=== PATIENT | female | born 2000 | race Caucasian/White ===

== ENCOUNTER 2018-02-13 22:09 | Emergency (ER) | payer OTHER ==
[2018-02-13 23:02] LABS: Absolute Lymphocytes (CBC) 3.3 K/uL (0.7-4.9); Absolute Monocytes 0.8 K/uL (0.1-1.3); Absolute Neutrophil 6.1 K/uL (1.8-8.0); Basophils % 0.4 % (0-1.3); Eosinophils % 1.3 % (0-4.4); Hematocrit 40.7 % (36.0-45.0); Lymphocytes % 31.9 % (15.3-44.8); MCH 26.1 pg (27.0-35.0); MCV 78.3 fL (80-100); MPV 7.5 fL (7.6-11.3); Monocytes % 7.9 % (3.3-12.3); RBC Red Blood Cell Count 5.19 M/uL (3.86-4.86)
[2018-02-13] MEDS ORDERED: NA CHLORIDE 0.9% 1,000 ML ONE (23:18)
[2018-02-13 23:20] LABS: ALT/SGPT 25 U/L (12-78); AST/SGOT 33 U/L (15-37); Albumin 3.9 g/dL (3.4-5.0); Alkaline Phosphatase 102 U/L (45-117); BUN Blood Urea Nitrogen 10 mg/dL (7-18); Bicarbonate 26 mmol/L (21-32); Bilirubin Direct < 0.1 mg/dL (0-0.2); Bilirubin Total 0.1 mg/dL (0.2-1.0); Glucose Level 93 mg/dL (74-106); Lipase 171 U/L (73-393); Potassium 3.8 mmol/L (3.5-5.1); Sodium Level 140 mmol/L (136-145)
[2018-02-14 00:25] LABS: Urine Blood NEGATIVE (NEG); Urine Glucose NEGATIVE (NEG); Urine Protein NEGATIVE (NEG); Urine Specific Gravity 1.025 (1.005-1.030)
[2018-02-14 01:23] LABS: Urine Bacteria <20 /HPF (<20); Urine Culture Reflex Order NOT NEEDED; Urine RBC <5 /HPF (NONE SEEN)
--- NOTE | 2018-02-14 03:09 | ER ---
Nurse's Notes [facility] Name: Filemon Lim Age: 17 yrs Sex: Female : 2000 Arrival Date: 02/13/2018 Time: 22:10 Bed 16 Private MD: Diagnosis: Lower abdominal pain, unspecified Presentation: 02/13 22:27 Presenting complaint: Patient states: RIGHT flank/RLQ pain, worse with movement, sharp sr5 pain, started this evening, intermittent intensity but always present. Denies urinary s/s. 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 Transition of care: patient was not received from another setting of care. Onset of symptoms was February 13, 2018. 22:27 Method Of Arrival: Ambulatory sr5 22:27 Acuity: GAIL 3 sr5 02/14 00:21 Risk Assessment: Do you want to hurt yourself or someone else? Patient reports no tl2 desire to harm self or others. Initial Sepsis Screen: Does the patient meet any 2 criteria? No. Patient's initial sepsis screen is negative. Does the patient have a suspected source of infection? No. Patient's initial sepsis screen is negative. Care prior to arrival: None. Triage Assessment: 02/13 22:30 General: Appears uncomfortable, Behavior is calm, cooperative. Pain: Complains of pain sr5 in anterior aspect of right lateral abdomen and right lower quadrant Pain does not radiate. Pain currently is 9 out of 10 on a pain scale. Quality of pain is described as sharp. Neuro: No deficits noted. Cardiovascular: No deficits noted. Respiratory: No deficits noted. GI: Reports lower abdominal pain. 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 - Social history:: Smoking status: Patient/guardian denies using tobacco. - Ebola Screening: : No symptoms or risks identified at this time. Screenin/10 00:21 Abuse screen: Denies threats or abuse. Nutritional screening: No deficits noted. tl2 Tuberculosis screening: No symptoms or risk factors identified. Fall Risk None identified. Assessment: 02/13 22:30 General: Appears in no apparent distress. comfortable, Behavior is calm, cooperative, tl3 appropriate for age. Pain: Complains of pain in right lower quadrant and anterior aspect of right lateral abdomen. Neuro: Level of Consciousness is awake, alert, obeys commands, Oriented to person, place, time, situation. Cardiovascular: Denies chest pain. Respiratory: Airway is patent Respiratory effort is even, unlabored, Respiratory pattern is regular, symmetrical. GI: Bowel sounds present X 4 quads. Abd is soft and non tender Patient currently denies nausea, vomiting. : No signs and/or symptoms were reported regarding the genitourinary system. Derm: Skin is pink, warm \T\ dry. 02/14 00:00 Reassessment: Patient appears in no apparent distress at this time. Patient and/or tl3 family updated on plan of care and expected duration. Pain level reassessed. Patient is alert, oriented x 3, equal unlabored respirations, skin warm/dry/pink. 01:17 Reassessment: Patient appears in no apparent distress at this time. Patient and/or tl3 family updated on plan of care and expected duration. Pain level reassessed. Patient is alert, oriented x 3, equal unlabored respirations, skin warm/dry/pink. Awaiting dispo. 02:16 Reassessment: Patient appears in no apparent distress at this time. Patient and/or tl2 family updated on plan of care and expected duration. Pain level reassessed. Patient is alert, oriented x 3, equal unlabored respirations, skin warm/dry/pink. awaiting CT results. 03:35 Reassessment: Patient appears in no apparent distress at this time. Patient and/or tl2 family updated on plan of care and expected duration. Pain level reassessed. Patient is alert, oriented x 3, equal unlabored respirations, skin warm/dry/pink. Pt verbalized understanding of discharge instructions, need for follow up and prescription usage Patient states feeling better. Vital Signs: 02/13 22:30 BP 135 / 91; Pulse 94; Resp 16; Temp 98.9; Pulse Ox 100% on R/A; Weight 86.18 kg (R); sr5 Height 5 ft. 5 in. (165.10 cm); Pain 9/10; 02/14 00:20 BP 134 / 85; Pulse 94; Resp 18; Pulse Ox 100% on R/A; tl2 01:15 BP 120 / 69; Pulse 91; Resp 18; Pulse Ox 100% on R/A; tl3 02:16 BP 122 / 78; Pulse 94; Resp 18; Pulse Ox 100% on R/A; tl2 02/13 22:30 Body Mass Index 31.62 (86.18 kg, 165.10 cm) sr5 ED Course: 02/13 22:10 Patient arrived in ED. am2 22:24 Jyoti Patel FNP-C is PHCP. snw 22:24 Pierre Gold MD is Attending Physician. snw 22:28 Triage completed. sr5 22:29 Guillermina Santos, SOLIS is Primary Nurse. tl2 22:30 Arm band placed on. sr5 23:00 Inserted saline lock: 22 gauge in left antecubital area, using aseptic technique. Blood tl2 collected. 02/14 00:21 Patient has correct armband on for positive identification. Bed in low position. Call tl2 light in reach. Side rails up X 1. Adult w/ patient. 00:21 No provider procedures requiring assistance completed. tl2 01:[address] via wheelchair. kw1 01:[address] via wheelchair. kw1 01:[address] In Process Unspecified. EDMS 01:42 CT completed. Patient tolerated procedure well. Patient moved back from CT. kw1 03:35 IV discontinued, intact, bleeding controlled, No redness/swelling at site. Pressure tl2 dressing applied. Administered Medications: 02/13 23:14 Drug: NS 0.9% 1000 ml Route: IV; Rate: 1 bolus; Site: left antecubital; tl2 02/14 01:00 Follow up: IV Status: Completed infusion tl2 Outcome: 03:09 Discharge ordered by . snw 03:35 Discharged to home ambulatory, with family. tl2 03:35 Condition: stable 03:35 Discharge instructions given to patient, Instructed on discharge instructions, follow up and referral plans. medication usage, Demonstrated understanding of instructions, follow-up care, medications, Prescriptions given X 1. 03:36 Patient left the ED. tl2 Signatures: Dispatcher [employer] EDMS Jyoti Patel FNP-C FNP-Csnw Abdon Victoria, RN RN sr5 Guillermina Santos, RN RN tl2 Citlali Mars am2 Farnaz Raymundo kw1 hCarlotte Bunn, RN RN tl3
--- NOTE | 2018-02-14 03:09 | EDPHYS ---
Physician Documentation [facility] Name: Filemon Lim Age: 17 yrs Sex: Female : 2000 Arrival Date: 02/13/2018 Time: 22:10 Bed 16 Private MD: ED Physician Pierre Gold HPI: 02/13 23:13 This 17 yrs old Female presents to ER via Ambulatory with complaints of snw Abdominal Pain - rad to right side. 23:13 The patient presents with abdominal pain right lower quadrant. Onset: The snw symptoms/episode began/occurred suddenly, today, and became persistent. The symptoms do not radiate. Associated signs and symptoms: none. The symptoms are described as crampy, waxing/waning. Severity of pain: At its worst the pain was moderate. The patient has not experienced similar symptoms in the past. The patient has not recently seen a physician. 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 - Social history:: Smoking status: Patient/guardian denies using tobacco. - Ebola Screening: : No symptoms or risks identified at this time. ROS: 23:12 Constitutional: Negative for fever, chills, and weight loss, Eyes: Negative for injury, snw pain, redness, and discharge, ENT: Negative for injury, pain, and discharge, Neck: Negative for injury, pain, and swelling, Cardiovascular: Negative for chest pain, palpitations, and edema, Respiratory: Negative for shortness of breath, cough, wheezing, and pleuritic chest pain, Back: Negative for injury and pain, : Negative for injury, bleeding, discharge, and swelling, MS/Extremity: Negative for injury and deformity, Skin: Negative for injury, rash, and discoloration, Neuro: Negative for headache, weakness, numbness, tingling, and seizure. 23:12 Abdomen/GI: Positive for abdominal pain, Negative for nausea, vomiting, and diarrhea, fever. Exam: 23:10 Constitutional: This is a well developed, well nourished patient who is awake, alert, snw and in no acute distress. Head/Face: Normocephalic, atraumatic. Eyes: Pupils equal round and reactive to light, extra-ocular motions intact. Lids and lashes normal. Conjunctiva and sclera are non-icteric and not injected. Cornea within normal limits. Periorbital areas with no swelling, redness, or edema. ENT: Nares patent. No nasal discharge, no septal abnormalities noted. Tympanic membranes are normal and external auditory canals are clear. Oropharynx with no redness, swelling, or masses, exudates, or evidence of obstruction, uvula midline. Mucous membranes moist. Neck: Trachea midline, no thyromegaly or masses palpated, and no cervical lymphadenopathy. Supple, full range of motion without nuchal rigidity, or vertebral point tenderness. No Meningismus. Chest/axilla: Normal chest wall appearance and motion. Nontender with no deformity. No lesions are appreciated. Cardiovascular: Regular rate and rhythm with a normal S1 and S2. No gallops, murmurs, or rubs. Normal PMI, no JVD. No pulse deficits. Respiratory: Lungs have equal breath sounds bilaterally, clear to auscultation and percussion. No rales, rhonchi or wheezes noted. No increased work of breathing, no retractions or nasal flaring. Back: No spinal tenderness. No costovertebral tenderness. Full range of motion. Skin: Warm, dry with normal turgor. Normal color with no rashes, no lesions, and no evidence of cellulitis. MS/ Extremity: Pulses equal, no cyanosis. Neurovascular intact. Full, normal range of motion. Neuro: Awake and alert, GCS 15, oriented to person, place, time, and situation. Cranial nerves II-XII grossly intact. Motor strength 5/5 in all extremities. Sensory grossly intact. Cerebellar exam normal. Normal gait. 23:10 Abdomen/GI: Inspection: abdomen appears normal, Bowel sounds: normal, Palpation: moderate abdominal tenderness, in the right lower quadrant. Vital Signs: 22:30 BP 135 / 91; Pulse 94; Resp 16; Temp 98.9; Pulse Ox 100% on R/A; Weight 86.18 kg (R); sr5 Height 5 ft. 5 in. (165.10 cm); Pain 01/15; 02/14 00:20 BP 134 / 85; Pulse 94; Resp 18; Pulse Ox 100% on R/A; tl2 01:15 BP 120 / 69; Pulse 91; Resp 18; Pulse Ox 100% on R/A; tl3 02:16 BP 122 / 78; Pulse 94; Resp 18; Pulse Ox 100% on R/A; tl2 02/13 22:30 Body Mass Index 31.62 (86.18 kg, 165.10 cm) sr5 MDM: 02/13 22:49 Patient medically screened. snw 02/14 02:45 Data reviewed: vital signs, nurses notes. Data interpreted: Pulse oximetry: on room air snw is 100 %. Interpretation: normal. Counseling: I had a detailed discussion with the patient and/or guardian regarding: the historical points, exam findings, and any diagnostic results supporting the discharge/admit diagnosis, lab results, radiology results, the need for outpatient follow up, for definitive care, to return to the emergency department if symptoms worsen or persist or if there are any questions or concerns that arise at home. Special discussion: Based on the patient's Hx, exam, and Dx evaluation, there is no indication for emergent surgery or inpatient Tx. It is understood by the patient/guardian that if the Sx's persist or worsen they need to return immediately for re-evaluation. Based on the history and exam findings, there is no indication for further emergent testing or inpatient evaluation. I discussed with the patient/guardian the need to see the primary care provider for further evaluation of the symptoms. 02/13 22:24 Order name: Basic Metabolic Panel; Complete Time: 23:21 snw 02/13 22:24 Order name: CBC with Diff; Complete Time: 23:08 snw 02/13 22:24 Order name: Creatinine for Radiology; Complete Time: 23:51 snw 02/13 22:24 Order name: Hepatic Function; Complete Time: 23:21 snw 02/13 22:24 Order name: Lipase; Complete Time: 23:21 snw 02/13 22:24 Order name: Urine Culture snw 02/13 22:24 Order name: IV Saline Lock; Complete Time: 22:52 snw 02/13 22:24 Order name: Urine Microscopic Only; Complete Time: 01:25 snw 02/13 23:21 Order name: Stone Protocol CT snw 02/14 00:14 Order name: Urine Dipstick--Ancillary (enter results) mt 02/14 00:14 Order name: Urine --Ancillary (enter results) mt 02/14 00:14 Order name: Urine Dipstick-Ancillary; Complete Time: 00:27 EDMS 02/14 00:14 Order name: Urine --Ancillary; Complete Time: 00:27 EDMS 02/13 22:24 Order name: Labs collected and sent; Complete Time: 22:52 snw 02/13 22:24 Order name: Urine Test (obtain specimen); Complete Time: 00:21 snw 02/13 22:24 Order name: Urine Dipstick-Ancillary (obtain specimen); Complete Time: 00:21 snw Administered Medications: 02/13 23:14 Drug: NS 0.9% 1000 ml Route: IV; Rate: 1 bolus; Site: left antecubital; tl2 02/14 01:00 Follow up: IV Status: Completed infusion tl2 Disposition: 04:35 Co-signature as Attending Physician, Pierre Gold MD. rn Disposition: 02/14/18 03:09 Discharged to Home. Impression: Lower abdominal pain, unspecified. - Condition is Stable. - Discharge Instructions: Abdominal Pain, Adult. - Prescriptions for Bentyl 20 mg Oral Tablet - take 1 tablet by ORAL route every 6 hours As needed; 20 tablet. - Medication Reconciliation Form, Thank You Letter, Antibiotic Education, Prescription Opioid Use form. - Follow up: Private Physician; When: 2 - 3 days; Reason: Recheck today's complaints, Continuance of care, Re-evaluation by your physician. Follow up: Emergency Department; When: As needed; Reason: Worsening of condition. Signatures: Dispatcher [employer] EDWV Jyoti Patel, PROGRAM CLINICIAN-C PROGRAM CLINICIAN-Csnw Pierre Gold MD MD rn Abdon Victoria RN RN sr5 Guillermina Santos RN RN tl2 Corrections: (The following items were deleted from the chart) 03:36 03:09 02/14/2018 03:09 Discharged to Home. Impression: Lower abdominal pain, tl2 unspecified. Condition is Stable. Forms are Medication Reconciliation Form, Thank You Letter, Antibiotic Education, Prescription Opioid Use. Follow up: Private Physician; When: 2 - 3 days; Reason: Recheck today's complaints, Continuance of care, Re-evaluation by your physician. Follow up: Emergency Department; When: As needed; Reason: Worsening of condition. w
--- NOTE | 2018-02-14 08:06 | RAD REPORT ---
EXAM DESCRIPTION: CT - Stone Protocol - 02/14/2018 6:56 am CLINICAL HISTORY: Abdominal pain. Right flank pain COMPARISON: None. TECHNIQUE: Computed axial tomography of the abdomen pelvis was obtained without oral or IV contrast. Lack of IV and oral contrast limits evaluation of solid organs, bowel, and vessels. Coronal reformat jesus images were obtained and reviewed. A preliminary report was generated by [employer] and r radha prior to dictation All CT scans are performed using dose optimization technique as appropriate and may include automated exposure control or mA/KV adjustment according to patient size. FINDINGS: A renal calculus is not seen. An ureteral calculus is not noted. A bladder calculus is not present. The liver, spleen, pancreas and adrenals appear grossly normal There is no evidence of diverticulitis. The appendix appears normal IMPRESSION: Negative for a genitourinary calculus
== END 2018-02-14 03:36 | disposition home or self-care (01) ==
LOC: ER 22:09
DX: R10.31 Right lower quadrant pain (principal); F41.9 Anxiety disorder, unspecified; F32.9 Major depressive disorder, single episode, unspecified; Z91.040 Latex allergy status; Z91.048 Other nonmedicinal substance allergy status
CPT/HCPCS: 36415; 74176; 76377; 80048; 80076; 81003; 81015; 81025; 83690; 85025; 87086; 87088; 96360; 96361; 99284; J7030

== ENCOUNTER 2018-04-04 22:32 | Emergency (ER) | payer OTHER ==
--- NOTE | 2018-04-05 01:18 | ER ---
Nurse's Notes [facility] Name: Filemon Lim Age: 17 yrs Sex: Female : 2000 Arrival Date: 04/04/2018 Time: 22:36 Bed 10 Private MD: Diagnosis: right wrist pain Presentation: 04/04 23:35 Presenting complaint: Patient states: Patient fall into her right wrist at work ao yesterday around 1700. Patient is having pain in her right wrist and arm. Care prior to arrival: None. Mechanism of Injury: No Mechanism of Injury. Trauma event details: Injury occurred in the [facility]. 23:35 Acuity: GAIL 4 ao 23:35 Method Of Arrival: Ambulatory ao 23:40 Transition of care: patient was not received from another setting of care. Onset of ao symptoms was April 03, 2018 at 17:00. Risk Assessment: Do you want to hurt yourself or someone else? Patient reports no desire to harm self or others. Initial Sepsis Screen: Does the patient meet any 2 criteria? No. Patient's initial sepsis screen is negative. Does the patient have a suspected source of infection? No. Patient's initial sepsis screen is negative. Triage Assessment: 04/05 00:23 General: Appears comfortable, well groomed, Behavior is calm, cooperative, appropriate fc for age. Pain: Complains of pain in right arm Pain currently is 4 out of 10 on a pain scale. at worst was 6 out of 10 on a pain scale. Quality of pain is described as aching, Pain began gradually, Is continuous, Aggravated by increased activity, repositioning. EENT: No deficits noted. Neuro: Level of Consciousness is awake, alert, obeys commands, Oriented to person, place, time, situation. Cardiovascular: No deficits noted. Respiratory: No deficits noted. GI: No deficits noted. : No deficits noted. Derm: Skin is pink, warm \T\ dry. Musculoskeletal: Circulation, motion, and sensation intact. Capillary refill < 3 seconds, Range of motion: intact in all extremities, Reports pain in right arm. 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 ao Trauma Activation: Physician: ED Physician; Name: ; Notified At: ; Arrived At: Physician: General Surgeon; Name: ; Notified At: ; Arrived At: Physician: Radiology; Name: ; Notified At: ; Arrived At: Physician: Respiratory; Name: ; Notified At: ; Arrived At: Physician: Lab; Name: ; Notified At: ; Arrived At: 23:35 none ao Historical: - Allergies: 23:38 Latex, Natural Rubber; ao - Home Meds: 23:38 ANTIDEPRESSANT [Active]; lamotrigine 25 mg Oral tab 1 tabs nightly [Active]; bupropion ao HCl 75 mg oral tab [Active]; - PMHx: 23:38 Anxiety; Depression; Migraines; ao - PSHx: 23:38 None; ao - Immunization history:: Adult Immunizations up to date. - Social history:: Smoking status: Patient/guardian denies using tobacco, Patient/guardian denies using alcohol, street drugs. - Ebola Screening: : Patient negative for fever greater than or equal to 101.5 degrees Fahrenheit, and additional compatible Ebola Virus Disease symptoms Patient denies exposure to infectious person Patient denies travel to an Ebola-affected area in the 21 days before illness onset. Screenin/29 00:24 Abuse screen: Denies threats or abuse. Nutritional screening: No deficits noted. fc Tuberculosis screening: No symptoms or risk factors identified. Fall Risk None identified. Primary Survey: 04/04 23:41 A: Airway: patent. Breathing/Chest: Respiratory pattern: regular, Respiratory effort: ao spontaneous, unlabored. Circulation: Cardiac rhythm: sinus rhythm. Disability Alert. Assessment: 04/05 00:24 Reassessment: No changes from previously documented assessment. Patient and/or family fc updated on plan of care and expected duration. Pain level reassessed. Patient is alert, oriented x 3, equal unlabored respirations, skin warm/dry/pink. 00:25 Reassessment: Dr Drake in to see and examine pt. fc Vital Signs: 04/04 23:39 BP 125 / 75; Pulse 96; Resp 18; Temp 98.5; Pulse Ox 98% on R/A; Weight 86.18 kg; Height ao 5 ft. 5 in. (165.10 cm); Pain 5/10; 23:39 Body Mass Index 31.62 (86.18 kg, 165.10 cm) ao Perkins Coma Score: 23:40 Eye Response: spontaneous(4). Verbal Response: oriented(5). Motor Response: obeys ao commands(6). Total: 15. Trauma Score (Adult): 23:40 Eye Response: spontaneous(1); Verbal Response: oriented(1); Motor Response: obeys ao commands(2); Systolic BP: > 89 mm Hg(4); Respiratory Rate: 10 to 29 per min(4); Giovany Score: 15; Trauma Score: 12 ED Course: 22:36 Patient arrived in ED. ds1 23:37 Triage completed. ao 23:40 Arm band placed on left wrist. Patient placed in waiting room, Patient notified of wait ao time. 04/05 00:21 Antonio Drake MD is Attending Physician. ps1 00:24 Patient has correct armband on for positive identification. Call light in reach. fc 00:24 No provider procedures requiring assistance completed. fc 01:24 Forearm Right XRAY In Process Unspecified. EDMS 01:30 Patient did not have IV access during this emergency room visit. ao Administered Medications: No medications were administered Outcome: 01:18 Discharge ordered by MD. ps1 01:29 Discharged to home ambulatory. ao 01:29 Condition: stable 01:29 Discharge instructions given to patient, Instructed on discharge instructions, follow up and referral plans. Demonstrated understanding of instructions, follow-up care, medications, Prescriptions given X 1. 01:30 Patient left the ED. ao Signatures: Dispatcher [employer] Shannon Mcghee, RN Guillermina Dickerson ds1 Alessandro Goyal RN RN Antonio Ferreira MD MD ps1
--- NOTE | 2018-04-05 01:19 | EDPHYS ---
Physician Documentation [facility] Name: Filemon Lim Age: 17 yrs Sex: Female : 2000 Arrival Date: 04/04/2018 Time: 22:36 Bed 10 Private MD: ED Physician Antonio Drake HPI: 04/05 00:55 This 17 yrs old Female presents to ER via Ambulatory with complaints of Wrist ps1 Pain, Fall Injury. 00:55 at work and [employer]. Pain is at wrist and elbow. Rated as moderate. Onset was yesterday. ps1 Taking aleve. Worse with movement. NV intact. No obvious deformity. Pain additionally at thenar eminence. . 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 - Social history:: Smoking status: Patient/guardian denies using tobacco, Patient/guardian denies using alcohol, street drugs. - Ebola Screening: : Patient negative for fever greater than or equal to 101.5 degrees Fahrenheit, and additional compatible Ebola Virus Disease symptoms Patient denies exposure to infectious person Patient denies travel to an Ebola-affected area in the 21 days before illness onset. ROS: 04/05 00:55 Constitutional: Negative for fever, chills, and weight loss, Eyes: Negative for injury, ps1 pain, redness, and discharge, Cardiovascular: Negative for chest pain, palpitations, and edema, Respiratory: Negative for shortness of breath, cough, wheezing, and pleuritic chest pain, Abdomen/GI: Negative for abdominal pain, nausea, vomiting, diarrhea, and constipation, Skin: Negative for injury, rash, and discoloration, Neuro: Negative for headache, weakness, numbness, tingling, and seizure, Psych: Negative for depression, anxiety, suicide ideation, homicidal ideation, and hallucinations. MS/extremity: Positive for tenderness, of the heel of right hand. Exam: 00:55 Hand exam: Exam is positive for bony tenderness, tenderness, heel of right hand. ROM: ps1 no acute changes, full active range of motion, in the right arm, Circulation is intact in all extremities. sensation intact. Compartment Syndrome exam of affected extremity: is normal. Tendon exam: specific tendon testing normal through active and passive range of motion 01:20 Constitutional: This is a well developed, well nourished patient who is awake, alert, ps1 and in no acute distress. Head/Face: Normocephalic, atraumatic. Eyes: Pupils equal round and reactive to light, extra-ocular motions intact. Lids and lashes normal. Conjunctiva and sclera are non-icteric and not injected. Chest/axilla: Normal chest wall appearance and motion. Nontender with no deformity. No lesions are appreciated. Cardiovascular: Regular rate and rhythm. No gallops, murmurs, or rubs. Normal PMI, no JVD. No pulse deficits. Respiratory: Lungs have equal breath sounds bilaterally, clear to auscultation and percussion. No rales, rhonchi or wheezes noted. No increased work of breathing, no retractions or nasal flaring. Abdomen/GI: Soft, non-tender, with normal bowel sounds. No distension or tympany. No guarding or rebound. No evidence of tenderness throughout. Neuro: Awake and alert, GCS 15, oriented to person, place, time, and situation. Cranial nerves II-XII grossly intact. Sensory grossly intact. Psych: Awake, alert, with orientation to person, place and time. Behavior, mood, and affect are within normal limits. Vital Signs: 04/04 23:39 BP 125 / 75; Pulse 96; Resp 18; Temp 98.5; Pulse Ox 98% on R/A; Weight 86.18 kg; Height ao 5 ft. 5 in. (165.10 cm); Pain 5/10; 23:39 Body Mass Index 31.62 (86.18 kg, 165.10 cm) ao Giovany Coma Score: 23:40 Eye Response: spontaneous(4). Verbal Response: oriented(5). Motor Response: obeys ao commands(6). Total: 15. Trauma Score (Adult): 23:40 Eye Response: spontaneous(1); Verbal Response: oriented(1); Motor Response: obeys ao commands(2); Systolic BP: > 89 mm Hg(4); Respiratory Rate: 10 to 29 per min(4); Giovany Score: 15; Trauma Score: 12 MDM: 04/05 00:48 Patient medically screened. ps1 01:20 Data reviewed: vital signs, nurses notes, radiologic studies, plain films, and as a ps1 result, I will discharge patient. 04/05 00:23 Order name: Forearm Right XRAY fc Administered Medications: No medications were administered Disposition: 04/05/18 01:18 Discharged to Home. Impression: right wrist pain. - Condition is Stable. - Discharge Instructions: Wrist Pain. - Prescriptions for Anaprox DS 550 mg Oral Tablet - take 1 tablet by ORAL route every 12 hours As needed; 20 tablet. Medrol (Milad) 4 mg Oral Tablets, Dose Pack - take 1 tablet by ORAL route as directed - follow package instructions; 1 packet. - Work release form, Medication Reconciliation Form, Thank You Letter, Antibiotic Education, Prescription Opioid Use form. - Follow up: Private Physician; When: As needed; Reason: Recheck today's complaints, Continuance of care, Re-evaluation by your physician. - Problem is new. - Symptoms are unchanged. Signatures: Dispatcher [employer] Alessandro Edward RN RN Antonio Ferreira MD MD ps1 Corrections: (The following items were deleted from the chart) 01:30 01:18 04/05/2018 01:18 Discharged to Home. Impression: right wrist pain. Condition is ao Stable. Forms are Medication Reconciliation Form, Thank You Letter, Antibiotic Education, Prescription Opioid Use. Follow up: Private Physician; When: As needed; Reason: Recheck today's complaints, Continuance of care, Re-evaluation by your physician. Problem is new. Symptoms are unchanged. ps1
--- NOTE | 2018-04-05 07:10 | RAD REPORT ---
EXAM DESCRIPTION: RAD - Forearm Right - 04/05/2018 1:24 am CLINICAL HISTORY: Fall, arm pain COMPARISON: None. FINDINGS: No fracture is identified. There is no dislocation or periosteal reaction noted. Contusion or edema is seen in the soft tissues posterior to the forearm. No foreign body or air in th e soft tissues. IMPRESSION: Posterior soft tissue edema or contusion. No acute bone or joint finding.
== END 2018-04-05 01:30 | disposition home or self-care (01) ==
LOC: ER 22:32
DX: M25.531 Pain in right wrist (principal); F41.9 Anxiety disorder, unspecified; F32.9 Major depressive disorder, single episode, unspecified; Z91.040 Latex allergy status; Z91.048 Other nonmedicinal substance allergy status
CPT/HCPCS: 99283

== ENCOUNTER 2019-03-17 13:14 | Emergency (ER) | payer OTHER ==
[2019-03-17] MEDS ORDERED: ALBUTEROL 2.5 MG/3 ML NEB SOL ONE (14:20)
[2019-03-17] MEDS ORDERED: dexAMETHasone 4 MG TAB ONE (14:20)
--- NOTE | 2019-03-17 15:17 | ER ---
Nurse's Notes [facility] Name: Filemon Lim Age: 18 yrs Sex: Female : 2000 Arrival Date: 03/17/2019 Time: 13:17 Bed 10 [facility] MD: Diagnosis: Acute bronchitis Presentation: 03/17 13:22 Presenting complaint: Patient states: sore throat, OLMEDO, cough for the last few days. la1 Transition of care: patient was not received from another setting of care. Onset of symptoms was March 17, 2019. Risk Assessment: Do you want to hurt yourself or someone else? Patient reports no desire to harm self or others. Initial Sepsis Screen: Does the patient meet any 2 criteria? No. Patient's initial sepsis screen is negative. Does the patient have a suspected source of infection? No. Patient's initial sepsis screen is negative. Care prior to arrival: None. 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 - Social history:: Smoking status: Patient/guardian denies using tobacco. - Ebola Screening: : No symptoms or risks identified at this time. Screenin:57 Abuse screen: Denies threats or abuse. Nutritional screening: No deficits noted. la1 Tuberculosis screening: No symptoms or risk factors identified. Fall Risk None identified. Assessment: 13:56 General: Appears in no apparent distress. Behavior is calm, cooperative. Pain: la1 Complains of pain in throat. Neuro: Level of Consciousness is awake, alert, obeys commands. Cardiovascular: Capillary refill < 3 seconds Patient's skin is warm and dry. Respiratory: Airway is patent Respiratory effort is even, unlabored, Respiratory pattern is regular, symmetrical, Breath sounds are clear bilaterally. GI: No signs and/or symptoms were reported involving the gastrointestinal system. : No signs and/or symptoms were reported regarding the genitourinary system. EENT: Throat is reddened. Vital Signs: 13:23 BP 135 / 89; Pulse 111; Resp 16; Temp 98.4; Pulse Ox 100% on R/A; Weight 95.25 kg; la1 Height 5 ft. 5 in. (165.10 cm); 13:23 Body Mass Index 34.95 (95.25 kg, 165.10 cm) la1 ED Course: 13:17 Patient arrived in ED. rg4 13:22 Triage completed. la1 13:23 Arm band placed on left wrist. la1 13:32 Jyoti Patel FNP-C is [facility]. snw 13:32 Minesh Gil MD is Attending Physician. snw 13:56 Joseph Richmond RN is Primary Nurse. la1 13:57 Patient has correct armband on for positive identification. la1 13:57 No provider procedures requiring assistance completed. Patient did not have IV access la1 during this emergency room visit. 14:58 Chest Pa And Lat (2 Views) XRAY In Process Unspecified. EDMS Administered Medications: 14:23 Drug: Decadron 8 mg Route: PO; la1 14:23 Drug: Albuterol 2.5 mg Route: Inhalation; la1 Outcome: 15:16 Discharge ordered by . snw 15:39 Discharged to home ambulatory. la1 15:39 Condition: stable 15:39 Discharge instructions given to patient, family, Instructed on discharge instructions, Demonstrated understanding of instructions, follow-up care, medications, Prescriptions given X 3. 15:39 Patient left the ED. la1 Signatures: Dispatcher [employer] EDMS Jyoti Patel FNP-C WARP DRESSER-Csnw Joseph Richmond RN RN la1 Letha Lamar rg4
--- NOTE | 2019-03-17 15:17 | EDPHYS ---
Physician Documentation [facility] Name: Filemon Lim Age: 18 yrs Sex: Female : 2000 Arrival Date: 03/17/2019 Time: 13:17 Bed 10 Private MD: ED Physician Minesh Gil HPI: 03/17 14:11 This 18 yrs old Female presents to ER via Ambulatory with complaints of Sore snw Throat, Headache. 14:11 The patient presents with sore throat. The patient describes throat pain as raw, snw scratchy. Onset: The symptoms/episode began/occurred suddenly, 1 week(s) ago, and became persistent. Severity of symptoms: At their worst the symptoms were moderate. Modifying factors: the symptoms are aggravated by cough, small amount of blood tinged sputum. Associated signs and symptoms: Pertinent positives: cough, headache, Sore throat. The patient has not experienced similar symptoms in the past. It is unknown whether or not the patient has recently seen a physician. Wells Criteria negative for PE concerns. 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 - Social history:: Smoking status: Patient/guardian denies using tobacco. - Ebola Screening: : No symptoms or risks identified at this time. ROS: 14:10 Constitutional: Negative for fever, chills, and weight loss, Eyes: Negative for injury, snw pain, redness, and discharge, Neck: Negative for injury, pain, and swelling, Cardiovascular: Negative for chest pain, palpitations, and edema, Abdomen/GI: Negative for abdominal pain, nausea, vomiting, diarrhea, and constipation, Back: Negative for injury and pain, : Negative for injury, bleeding, discharge, and swelling, MS/Extremity: Negative for injury and deformity, Skin: Negative for injury, rash, and discoloration. 14:10 ENT: Positive for sinus congestion, sore throat. 14:10 Respiratory: Positive for cough, hemoptysis. Exam: 14:09 Constitutional: This is a well developed, well nourished patient who is awake, alert, snw and in no acute distress. Head/Face: Normocephalic, atraumatic. Eyes: Pupils equal round and reactive to light, extra-ocular motions intact. Lids and lashes normal. Conjunctiva and sclera are non-icteric and not injected. Cornea within normal limits. Periorbital areas with no swelling, redness, or edema. ENT: Nares patent. No nasal discharge, no septal abnormalities noted. Tympanic membranes are normal and external auditory canals are clear. Oropharynx with no redness, swelling, or masses, exudates, or evidence of obstruction, uvula midline. Mucous membranes moist. Neck: Trachea midline, no thyromegaly or masses palpated, and no cervical lymphadenopathy. Supple, full range of motion without nuchal rigidity, or vertebral point tenderness. No Meningismus. Chest/axilla: Normal chest wall appearance and motion. Nontender with no deformity. No lesions are appreciated. Abdomen/GI: Soft, non-tender, with normal bowel sounds. No distension or tympany. No guarding or rebound. No evidence of tenderness throughout. Back: No spinal tenderness. No costovertebral tenderness. Full range of motion. Skin: Warm, dry with normal turgor. Normal color with no rashes, no lesions, and no evidence of cellulitis. MS/ Extremity: Pulses equal, no cyanosis. Neurovascular intact. Full, normal range of motion. Neuro: Awake and alert, GCS 15, oriented to person, place, time, and situation. Cranial nerves II-XII grossly intact. Motor strength 5/5 in all extremities. Sensory grossly intact. Cerebellar exam normal. Normal gait. Psych: Awake, alert, with orientation to person, place and time. Behavior, mood, and affect are within normal limits. 14:09 Cardiovascular: Rate: tachycardic, Rhythm: regular, Pulses: no pulse deficits are appreciated, Heart sounds: normal. 14:09 Respiratory: the patient does not display signs of respiratory distress, Respirations: normal, Breath sounds: are clear throughout, no bronchial sounds, rhonchi, no wheezing. Vital Signs: 13:23 BP 135 / 89; Pulse 111; Resp 16; Temp 98.4; Pulse Ox 100% on R/A; Weight 95.25 kg; la1 Height 5 ft. 5 in. (165.10 cm); 13:23 Body Mass Index 34.95 (95.25 kg, 165.10 cm) la1 MDM: 13:56 Patient medically screened. snw 15:27 Data reviewed: vital signs, nurses notes. Data interpreted: Pulse oximetry: on room air snw is 100 %. Interpretation: normal. 03/17 13:24 Order name: Flu; Complete Time: 13:55 la1 03/17 13:24 Order name: Strep; Complete Time: 13:55 la1 03/17 13:47 Order name: Throat Culture EDGA 03/17 14:09 Order name: Chest Pa And Lat (2 Views) XRAY snw Administered Medications: 14:23 Drug: Decadron 8 mg Route: PO; la1 14:23 Drug: Albuterol 2.5 mg Route: Inhalation; la1 Disposition: 03/17/19 15:16 Discharged to Home. Impression: Acute bronchitis. - Condition is Stable. - Discharge Instructions: Acute Bronchitis, Adult, Fever, Adult, Hypertension, Cough, Adult, Rehydration, Adult. - Prescriptions for Zyrtec 10 mg Oral Tablet - take 1 tablet by ORAL route once daily As needed; 20 tablet. Tessalon Perles 100 mg Oral Capsule - take 1 capsule by ORAL route every 8 hours As needed; 15 capsule. Prednisone 20 mg Oral Tablet - take 2 tablet by ORAL route once daily for 5 days; 10 tablet. Albuterol Sulfate 90 mcg/actuation - inhale 1-2 puff by INHALATION route every 4-6 hours; 1 Inhaler. - Work release form, Medication Reconciliation Form, Thank You Letter, Antibiotic Education, Prescription Opioid Use form. - Follow up: Private Physician; When: 2 - 3 days; Reason: Recheck today's complaints, Continuance of care, Re-evaluation by your physician. Follow up: Emergency Department; When: As needed; Reason: Worsening of condition. Addendum: 03/18/2019 16:44 Co-signature as Attending Physician, Minesh Gil MD. m a2 Signatures: Dispatcher [employer] Jyoti Armstrong FNP-C FNP-Joseph Mason, SOLIS RN la1 Minesh Gil MD MD ma2 Corrections: (The following items were deleted from the chart) 03/17 15:39 15:16 03/17/2019 15:16 Discharged to Home. Impression: Acute bronchitis. Condition is la1 Stable. Forms are Medication Reconciliation Form, Thank You Letter, Antibiotic Education, Prescription Opioid Use. Follow up: Private Physician; When: 2 - 3 days; Reason: Recheck today's complaints, Continuance of care, Re-evaluation by your physician. Follow up: Emergency Department; When: As needed; Reason: Worsening of condition. snw
[2019-03-17 16:06] VITALS: BP 135/89; TEMP 98.4; O2SAT 100
--- NOTE | 2019-03-17 16:55 | RAD REPORT ---
EXAM DESCRIPTION: Brenden Purvis And Vega (2 Views)03/17/2019 2:59 pm CLINICAL HISTORY: Cough COMPARISON: 2016 FINDINGS: The lungs appear clear of acute infiltrate. The heart is normal size Scoliosis involves the spine IMPRESSION: No acute abnormalities displayed
== END 2019-03-17 15:39 | disposition home or self-care (01) ==
LOC: ER 13:14
DX: J20.9 Acute bronchitis, unspecified (principal); Z91.040 Latex allergy status; Z91.048 Other nonmedicinal substance allergy status
CPT/HCPCS: 87070; 87081; 87804 ×2; 71046; 99284; J8540